=== PATIENT | female | born 1935 | race Caucasian/White ===

== ENCOUNTER 2016-11-07 13:44 | Inpatient (IN) | payer OTHER, MEDICARE ==
[~2016-11-07] VITALS: Ht 152.4 cm; Wt 81.3 kg
[~2016-11-07 13:44] MED LIST: ACETAMINOPHEN325 M1 PO; ARTIFICIAL TEAR15 M1 BOTH EYES; ATENOLOL50 MG PO; BISACODYL SUPP10 MG PR; COLACE100 MG PO; CYMBALTA60 MG PO; ELIQUIS5 MG PO; ENEMA133 M2 PR; KLOR-CON 1010 ME1 PO; LASIX20 MG PO; LISINOPRIL20 MG PO; MILK OF MAGN PO; PATANOL OP100 DROP/5 BOTH EYES; SIMVASTATIN20 MG PO
[2016-11-07 14:18] LABS: EOSINOPHIL (%) 0.1 % (0-5); HEMATOCRIT 45.7 % (36.0-46.0); IMMATURE GRANULOCYTE (%) 0.3 % (0.0-0.7); INSTRUMENT ABS NEUTROPHIL CT 9.7 K/uL; LYMPHOCYTE COUNT 2.2 K/uL (1.0-2.8); MCH 30.2 PG (29.0-34.0); MCHC 33.3 G/DL (30.0-36.0); MCV 90.9 FL (83-99); MEAN PLAT.VOLUME 10.4 uM^3 (9.5-12.4); MONOCYTE (%) 8.8 % (3-12); MONOCYTE COUNT 1.2 K/uL (0-0.8); NEUTROPHIL (%) 74.1 % (45-76); NEUTROPHIL COUNT 9.7 K/uL (1.8-6.4); PLATELET COUNT 294 K/uL (156-360); RBC DIS.WIDTH-CV 13.4 % (11.8-14.6); RBC DIS.WIDTH-SD 45.1 % (39-53); RED BLOOD COUNT 5.03 M/uL (3.80-5.20); WHITE BLOOD COUNT 13.1 K/uL (4.1-10.2)
[2016-11-07 14:28] LABS: CHLORIDE 102 mEq/L (99-109); POTASSIUM 3.2 mEq/L (3.7-5.4); SODIUM 138 mEq/L (136-147)
[2016-11-07 14:30] LABS: GLUCOSE 294 mg/dL (70-99); INTER. NORMALIZED RATIO 1.1; PROTHROMBIN TIME 11.4 (9.2-11.2); PTT 26.1 (25-32)
[2016-11-07 14:32] LABS: ANION GAP 15 MEQ/L (2-14); TOTAL BILIRUBIN 1.7 mg/dL (0.0-1.0)
[2016-11-07 14:34] LABS: ALKALINE PHOSPHATASE 75 IU/L (3-129); GFR ESTIMATE (CALCULATED) 35 mL/min/
[2016-11-07 14:35] LABS: UREA NITROGEN (BUN) 26 mg/dL (9-23)
[2016-11-07 14:46] LABS: ADD MIUA? YES; BILIRUBIN NEGATIVE; BLOOD NEGATIVE; COLOR AMBER ((YELLOW)); GLUCOSE (STRIP) 50; KETONES 5; LEUKOCYTES NEGATIVE; NITRITE NEGATIVE; PROTEIN (STRIP) 30; SPECIFIC GRAVITY 1.018 (1.000-1.030); UROBILINOGEN 0.2 MG/DL (0.2-1.0)
[2016-11-07 14:56] LABS: BACTERIA NONE SEEN /HPF; EPITHELIAL CELLS RARE /HPF; HYALINE CASTS 15-20 /LPF; MUCUS 1+ /LPF; RED BLOOD CELLS 0-5 /HPF (0-5); UCUL ADDED? NO; WHITE BLOOD CELLS 0-5 /HPF (0-5)
[2016-11-07] MEDS ORDERED: CALCIUM 600 +1 EAC6 PO (17:48)
[2016-11-07] MEDS ORDERED: FOSAMAX70 MG PO (17:50)
[2016-11-07] MEDS ORDERED: [UNRECOGNIZED DRUG - OTHER] LEFT EYE (17:51)
[2016-11-07] MEDS ORDERED: BISAC-EVAC10 MG PR (17:53)
[2016-11-07] MEDS ORDERED: FLEET ENEMA-AD118 ML PR (17:53)
[2016-11-07] MEDS ORDERED: ACETAMINOPHEN325 M1 PO (17:54)
[2016-11-07] MEDS ORDERED: TUMS500 MG PO (17:55)
[2016-11-07] MEDS ORDERED: ROBITUSSIN COU237 M2 PO (17:55)
[2016-11-07 20:03] VITALS: BP 108/74
[2016-11-08 08:02] LABS: HEMATOCRIT 35.8 % (36.0-46.0); HEMATOLOGY COMMENT 1 SMEAR COMPATIBLE; MCH 30.1 PG (29.0-34.0); MCHC 32.7 G/DL (30.0-36.0); MEAN PLAT.VOLUME 10.6 uM^3 (9.5-12.4); RBC DIS.WIDTH-CV 13.7 % (11.8-14.6); RBC DIS.WIDTH-SD 46.2 % (39-53)
[2016-11-08 08:05] LABS: PLATELET COUNT 189 K/uL (156-360); RED BLOOD COUNT 3.89 M/uL (3.80-5.20); WHITE BLOOD COUNT 8.3 K/uL (4.1-10.2)
[2016-11-08 08:19] LABS: ANION GAP 9 MEQ/L (2-14); CHLORIDE 111 MEQ/L (99-109); GFR ESTIMATE (CALCULATED) > 59 mL/min/; GLUCOSE 166 mg/dL (70-99); POTASSIUM 3.1 MEQ/L (3.7-5.4); SAMPLE HEMOLYSIS CHECK 0; SAMPLE ICTERIC CHECK 0; SAMPLE LIPEMIA CHECK 0; SODIUM 142 MEQ/L (136-147); UREA NITROGEN (BUN) 19 mg/dL (9-23)
[2016-11-08 09:54] VITALS: BP 109/61
[2016-11-08 14:25] LABS: C DIFF TOXIN NEGATIVE (NEGATIVE)
[2016-11-08 14:27] LABS: PROBE CHECK PASS; SPECIMEN PROCESSING CONTROL PASS
[2016-11-08 16:44] VITALS: BP 124/61
[2016-11-08 22:30] VITALS: BP 123/60
[2016-11-09 06:34] LABS: EOSINOPHIL (%) 2.3 % (0-5); EOSINOPHIL COUNT 0.2 K/uL (0-0.3); HEMATOCRIT 34.1 % (36.0-46.0); IMMATURE GRANULOCYTE (%) 1.1 % (0.0-0.7); IMMATURE GRANULOCYTE COUNT 0.1 K/uL; INSTRUMENT ABS NEUTROPHIL CT 3.4 K/uL; LYMPHOCYTE COUNT 2.2 K/uL (1.0-2.8); MCH 29.9 PG (29.0-34.0); MCHC 32.6 G/DL (30.0-36.0); MCV 91.9 FL (83-99); MEAN PLAT.VOLUME 10.5 uM^3 (9.5-12.4); MONOCYTE (%) 10.2 % (3-12); MONOCYTE COUNT 0.7 K/uL (0-0.8); NEUTROPHIL (%) 52.2 % (45-76); NEUTROPHIL COUNT 3.4 K/uL (1.8-6.4); PLATELET COUNT 182 K/uL (156-360); RBC DIS.WIDTH-CV 13.4 % (11.8-14.6); RBC DIS.WIDTH-SD 45.3 % (39-53); RED BLOOD COUNT 3.71 M/uL (3.80-5.20); WHITE BLOOD COUNT 6.5 K/uL (4.1-10.2)
[2016-11-09 06:55] LABS: ANION GAP 8 MEQ/L (2-14); CHLORIDE 114 MEQ/L (99-109); GFR ESTIMATE (CALCULATED) > 59 mL/min/; GLUCOSE 165 mg/dL (70-99); POTASSIUM 3.4 MEQ/L (3.7-5.4); SAMPLE HEMOLYSIS CHECK 0; SAMPLE ICTERIC CHECK 0; SAMPLE LIPEMIA CHECK 0; SODIUM 144 MEQ/L (136-147); UREA NITROGEN (BUN) 8 mg/dL (9-23)
[2016-11-09 07:07] VITALS: BP 139/83
[2016-11-09 15:08] VITALS: BP 119/68
[2016-11-09 22:37] VITALS: BP 136/71
[2016-11-10 07:11] LABS: EOSINOPHIL (%) 2.8 % (0-5); EOSINOPHIL COUNT 0.2 K/uL (0-0.3); HEMATOCRIT 34.2 % (36.0-46.0); IMMATURE GRANULOCYTE (%) 3.4 % (0.0-0.7); IMMATURE GRANULOCYTE COUNT 0.2 K/uL; INSTRUMENT ABS NEUTROPHIL CT 2.5 K/uL; LYMPHOCYTE COUNT 2.1 K/uL (1.0-2.8); MCH 29.6 PG (29.0-34.0); MCHC 31.9 G/DL (30.0-36.0); MCV 92.9 FL (83-99); MEAN PLAT.VOLUME 10.2 uM^3 (9.5-12.4); MONOCYTE COUNT 0.6 K/uL (0-0.8); NEUTROPHIL (%) 44.5 % (45-76); NEUTROPHIL COUNT 2.5 K/uL (1.8-6.4); PLATELET COUNT 174 K/uL (156-360); RBC DIS.WIDTH-CV 13.6 % (11.8-14.6); RBC DIS.WIDTH-SD 46.1 % (39-53); RED BLOOD COUNT 3.68 M/uL (3.80-5.20); WHITE BLOOD COUNT 5.7 K/uL (4.1-10.2)
[2016-11-10 07:15] VITALS: BP 165/80
[2016-11-10 07:39] LABS: ANION GAP 8 MEQ/L (2-14); CHLORIDE 114 MEQ/L (99-109); GFR ESTIMATE (CALCULATED) > 59 mL/min/; GLUCOSE 143 mg/dL (70-99); POTASSIUM 3.8 MEQ/L (3.7-5.4); SAMPLE HEMOLYSIS CHECK 0; SAMPLE ICTERIC CHECK 0; SAMPLE LIPEMIA CHECK 0; SODIUM 146 MEQ/L (136-147); UREA NITROGEN (BUN) 5 mg/dL (9-23)
[2016-11-10 16:00] VITALS: BP 129/61
[2016-11-10 23:00] VITALS: BP 136/76
[2016-11-11 08:03] VITALS: BP 157/76
[2016-11-11 17:13] VITALS: BP 147/65
== END 2016-11-11 17:32 | DRG 392 ==
LOC: EME 13:44 → 5EAST 17:33 → EDOF 17:33 → 5EAST 19:50
PROVIDERS: Emergency Medicine; Internal Medicine
DX: A08.4 Viral intestinal infection, unspecified (principal); E87.6 Hypokalemia; E11.9 Type 2 diabetes mellitus without complications; I48.2 Chronic atrial fibrillation; I10 Essential (primary) hypertension; Z86.718 Personal history of other venous thrombosis and embolism; F03.90 Unspecified dementia, unspecified severity, without behavioral disturbance, psychotic disturbance, mood disturbance, and anxiety; Z85.038 Personal history of other malignant neoplasm of large intestine; E78.5 Hyperlipidemia, unspecified; E86.0 Dehydration; N17.9 Acute kidney failure, unspecified
CPT/HCPCS: 71010; 74176; 80048; 80053; 81003; 85025; 85027; 85610; 85730; 87040; 87493; 93005; 99281; 99285; J2405; J3480; J7030